=== PATIENT | male | born 1960 | race American Indian/Alaskan Native ===

== ENCOUNTER 2022-03-28 09:42 | Outpatient (CLI) | payer BC | END 2022-03-28 09:43 | disposition home or self-care (01) | LOC: CSHLAB 09:42 | PROVIDERS: ATTEND Internal Medicine Gastroenterology | DX: Z20.822 Contact with and (suspected) exposure to COVID-19 (principal); Z12.11 Encounter for screening for malignant neoplasm of colon; K21.9 Gastro-esophageal reflux disease without esophagitis | CPT/HCPCS: 87811 ==

== ENCOUNTER 2022-03-31 05:50 | Day surgery (SDC) | payer BC ==
[2022-03-29 14:02] VITALS: BMI 30.3
[2022-03-31] MEDS ORDERED: Lidocaine 1% MPF 2 ML VIAL ONE (06:52)
[2022-03-31] MEDS ORDERED: Ketamine 50 MG/ML (10ML VIAL) ONE (07:11)
[2022-03-31] MEDS ORDERED: PROPOFOL 40 ML ONE (07:12)
[2022-03-31] MEDS ORDERED: Phenylephrine 10 MG/ML VIAL ONE (07:14)
[2022-03-31] MEDS ORDERED: Lidocaine 2% MPF 10 ML AMP (For Epidural Use) ONE (07:18)
[2022-03-31] MEDS ORDERED: PROPOFOL 20 ML ONE (08:12)
== END 2022-03-31 08:53 | disposition home or self-care (01) ==
LOC: CSHSDC 05:50
PROVIDERS: ATTEND Internal Medicine Gastroenterology
PROC: 0DBN8ZX Excision of Sigmoid Colon, Via Natural or Artificial Opening Endoscopic, Diagnostic (ICD-10-PCS; principal; 2022-03-31)
PROC: 0DB68ZX Excision of Stomach, Via Natural or Artificial Opening Endoscopic, Diagnostic (ICD-10-PCS; principal; 2022-03-31)
PROC: 0DB38ZX Excision of Lower Esophagus, Via Natural or Artificial Opening Endoscopic, Diagnostic (ICD-10-PCS; principal; 2022-03-31)
DX: Z12.11 Encounter for screening for malignant neoplasm of colon (principal); K63.5 Polyp of colon; K64.9 Unspecified hemorrhoids; K29.50 Unspecified chronic gastritis without bleeding; K31.7 Polyp of stomach and duodenum; K21.9 Gastro-esophageal reflux disease without esophagitis; F41.9 Anxiety disorder, unspecified; F32.A Depression, unspecified; Z79.899 Other long term (current) drug therapy; Z80.0 Family history of malignant neoplasm of digestive organs; Z20.822 Contact with and (suspected) exposure to COVID-19
CPT/HCPCS: 88305; J2370; J2704

== ENCOUNTER 2024-02-06 10:13 | Outpatient (CLI) | payer BC | END 2024-02-06 10:14 | disposition home or self-care (01) | LOC: CSHRAD 10:13 | PROVIDERS: ATTEND Psychiatry & Neurology Neurology | DX: M48.02 Spinal stenosis, cervical region (principal); M50.323 Other cervical disc degeneration at C6-C7 level | CPT/HCPCS: 72156 ==